=== PATIENT | female | born 1980 | race Caucasian/White ===

== ENCOUNTER 2017-04-15 09:53 | Emergency (ER) | payer BC ==
[~2017-04-15] VITALS: Ht 160 cm; Wt 54.4 kg
[~2017-04-15 09:53] MED LIST: FLC1T; IBP600T1 PO; NITR100C3 PO; ONDAN4ODT PO; PNV1TABL9; PRM25T PO; [UNRECOGNIZED DRUG - OTHER] PO
[2017-04-15] MEDS ORDERED: DICY20TA10 (10:07)
[2017-04-15] MEDS ORDERED: KEPPRA (10:07)
[2017-04-15] MEDS ORDERED: ONDA8TAB12 (10:07)
[2017-04-15] MEDS ORDERED: PROM25TA14 (10:07)
[2017-04-15] MEDS ORDERED: TRAM50TA2 (10:07)
[2017-04-15] MEDS ORDERED: NS IV 1000 ML 1,000 ML IV ONE (10:20)
[2017-04-15] MEDS ORDERED: FAMOTIDINE 20MG/2ML IV (PEPCID) IVP ONE (10:30)
[2017-04-15] MEDS ORDERED: ONDANSETRON 4 MG/2 ML (SDV) Z0FRAN IVP ONE (10:30)
[2017-04-15 10:48] LABS: BASOPHILS % (AUTO) 0 % (0-10); EOSINOPHILS % (AUTO) 0 % (0-10); LYMPHOCYTES % (AUTO) 18 % (12-44); MEAN CORPUSCULAR HEMOGLOBIN 25 PG (25-34); MEAN CORPUSCULAR HGB CONC 31 G/DL (32-36); MEAN CORPUSCULAR VOLUME 78 FL (80-99); MEAN PLATELET VOLUME 10.3 FL (7.4-10.4); MONOCYTES # (AUTO) 0.3 X 10^3 (0.0-1.0); MONOCYTES % (AUTO) 6 % (0-12); NEUTROPHILS # (AUTO) 4.4 X 10^3 (1.8-7.8); NEUTROPHILS % (AUTO) 77 % (42-75); PLATELET COUNT 336 10^3/uL (130-400); RED BLOOD COUNT 4.26 10^6/uL (4.35-5.85); RED CELL DISTRIBUTION WIDTH 17.9 % (10.0-14.5); WHITE BLOOD COUNT 5.7 10^3/uL (4.3-11.0)
[2017-04-15 11:08] LABS: ALANINE AMINOTRANSFERASE 21 U/L (0-55); ANION GAP 7 MMOL/L (5-14); ASPARTATE AMINO TRANSFERASE 18 U/L (5-34); BILIRUBIN,TOTAL 0.4 MG/DL (0.1-1.0); BLOOD UREA NITROGEN 12 MG/DL (7-18); BUN/CREATININE RATIO 17 (0-20); CALCIUM 8.8 MG/DL (8.5-10.1); CARBON DIOXIDE 25 MMOL/L (21-32); CHLORIDE 108 MMOL/L (98-107); GFR ESTIMATED > 60; GLUCOSE 100 MG/DL (70-105); LIPASE 27 U/L (8-78); POTASSIUM 3.3 MMOL/L (3.6-5.0); SODIUM 140 MMOL/L (135-145); TOTAL PROTEIN 6.3 GM/DL (6.4-8.2)
[2017-04-15] MEDS ORDERED: PROMETHAZINE INJ 25 MG/ML (PHENERGAN) AMP IVP ONE (11:45)
[2017-04-15 12:56] LABS: BILIRUBIN,URINE NEGATIVE (NEGATIVE); KETONES,URINE NEGATIVE (NEGATIVE); LEUKOCYTE ESTERASE ,URINE 2+ (NEGATIVE); NITRITE,URINE NEGATIVE (NEGATIVE); PH,URINE 6.5 (5-9); PROTEIN,URINE 2+ (NEGATIVE); UROBILINOGEN,URINE NORMAL (NORMAL)
--- NOTE | 2017-04-15 13:11 | ED Abdominal Pain ---
General Chief Complaint: Abdominal/GI Problems Stated Complaint: VOMITING,NAUSEA Nursing Triage Note: AMB TO ED HAS BEEN SICK SINCE SAT WITH NAUSEA & VOMITING WAS SEEN IN [facility]. ER GIVEN MEDS UNABLE TO KEEP ANYTHING DOWN BODY ACHES. NEG WORK UP ON SAT IN ER IN [facility]. Sepsis Screen: No Definite Risk Source of Information: Patient Exam Limitations: No Limitations History of Present Illness Time Seen By Provider: 10:05 Initial Comments This 36-year-old woman presents to the emergency room with complaints of vomiting and diarrhea since Friday (about 5 days). She reports a prior fever up to 102. She was seen for these symptoms already in [place], [place] on the first day of symptoms. She received IV fluids. She reports taking oral Zofran and promethazine but she has trouble keeping the pills down. She reports having a fever as recent as last night up to 100. Last menstrual period was about 10 days ago. Her Zofran was not sublingual. Allergies and Home Medications Allergies Coded Allergies: NKANo Known Allergies (Unverified Allergy, Unknown, 01/16/07) No Known Drug Allergies (Unverified , 02/27/09) Home Medications Dicyclomine HCl 20 Mg Tablet, #20 (Reported) Ibuprofen 600 Mg Tab, 600 MG PO Q6H PRN, (Reported) for mild pain Omeprazole 20 Mg Tablet.dr, 20 MG PO BID, #60 Prescribed by: JESUS CARRENO on 04/15/17 1332 Ondansetron 4 Mg Tab.rapdis, 4 MG SL Q4H, #10 Ref 1 Prescribed by: JESUS CARRENO on 04/15/17 1332 Ondansetron HCl 8 Mg Tablet, #20 (Reported) Promethazine HCl 25 Mg Tablet, #20 (Reported) Tramadol HCl 50 Mg Tablet, #18 (Reported) [Keppra] , (Reported) Review of Systems Constitutional: no symptoms reported EENTM: No Symptoms Reported Respiratory: No Symptoms Reported Cardiovascular: No Symptoms Reported Gastrointestinal: See HPI Genitourinary: No Symptoms Reported Musculoskeletal: no symptoms reported Skin: no symptoms reported Psychiatric/Neurological: No Symptoms Reported Endocrine: No Symptoms Reported Hematologic/Lymphatic: No Symptoms Reported Past Svwtfkw-Zhtqgm-Ezgcti Hx Patient Social History Alcohol Use: Denies Use Recreational Drug Use: No Smoking Status: Current Everyday Smoker Recent Foreign Travel: No Contact w/Someone Who Travel: No Recent Infectious Disease Expo: No Recent Hopitalizations: Yes (1996- OVARIAN CYST REMOVED FROM RT OVARY, 2004- C- SECTION) Immunizations Up To Date Tetanus Booster (TDap): Unknown Surgeries HX Surgeries: Yes Surgeries: Bladder Surgery, Section Respiratory Hx Respiratory Disorders: No Cardiovascular Hx Cardiac Disorders: Yes (mitrial valve prolapse) Neurological Hx Neurological Disorders: Yes Neurological Disorders: Seizure Disorder Reproductive System : No Hx Reproductive Disorders: Yes Female Reproductive Disorders: Ovarian Cyst Genitourinary Hx Genitourinary Disorders: No Gastrointestinal Hx Gastrointestinal Disorders: No Musculoskeletal Hx Musculoskeletal Disorders: No Endocrine Hx Endocrine Disorders: Yes (hypoglycemia) HEENT HX ENT Disorders: No Cancer Hx Cancer: No Psychosocial Hx Psychiatric Problems: Yes Behavioral Health Disorders: Depression Integumentary HX Skin/Integumentary Disorder: No Blood Transfusions Hx Blood Disorders: No Adverse Reaction to a Blood Tr: No Family Medical History Significant Family History: No Pertinent Family Hx Physical Exam Vital Signs VS - Last 72 Hours, by Label 04/15/17 04/15/17 09:58 13:41 Temp 98.2 Pulse 70 68 Resp 18 18 B/P (MAP) 131/91 Pulse Ox 100 O2 Delivery Room Air Capillary Refill : Less Than 3 Seconds General Appearance: WD/WN, no apparent distress HEENT: PERRL/EOMI, normal ENT inspection, pharynx normal Neck: normal inspection Respiratory: lungs clear, normal breath sounds, no respiratory distress, no accessory muscle use Cardiovascular: regular rate, rhythm, no edema, no murmur Gastrointestinal: normal bowel sounds, soft, tenderness (mild in the epigastrium) Extremities: normal inspection, no pedal edema 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, no motor/sensory deficits, alert, normal mood/affect, oriented x 3 Skin: normal color, warm/dry Progress/Results/Core Measures Results/Orders Lab Results Laboratory Tests Test 04/15/17 10:41 04/15/17 12:47 Range/Units White Blood Count 5.7 4.3-11.0 10^3/uL Red Blood Count 4.26 L 4.35-5.85 10^6/uL Hemoglobin 10.5 L 11.5-16.0 G/DL Hematocrit 33 L 35-52 % Mean Corpuscular Volume 78 L 80-99 FL Mean Corpuscular Hemoglobin 25 25-34 PG Mean Corpuscular Hemoglobin Concent 31 L 32-36 G/DL Red Cell Distribution Width 17.9 H 10.0-14.5 % Platelet Count 336 130-400 10^3/uL Mean Platelet Volume 10.3 7.4-10.4 FL Neutrophils (%) (Auto) 77 H 42-75 % Lymphocytes (%) (Auto) 18 12-44 % Monocytes (%) (Auto) 6 0-12 % Eosinophils (%) (Auto) 0 0-10 % Basophils (%) (Auto) 0 0-10 % Neutrophils # (Auto) 4.4 1.8-7.8 X 10^3 Lymphocytes # (Auto) 1.0 1.0-4.0 X 10^3 Monocytes # (Auto) 0.3 0.0-1.0 X 10^3 Eosinophils # (Auto) 0.0 0.0-0.3 10^3/uL Basophils # (Auto) 0.0 0.0-0.1 10^3/uL Sodium Level 140 135-145 MMOL/L Potassium Level 3.3 L 3.6-5.0 MMOL/L Chloride Level 108 H 98-107 MMOL/L Carbon Dioxide Level 25 21-32 MMOL/L Anion Gap 7 5-14 MMOL/L Blood Urea Nitrogen 12 7-18 MG/DL Creatinine 0.70 0.60-1.30 MG/DL Estimat Glomerular Filtration Rate > 60 BUN/Creatinine Ratio 17 0-20 Glucose Level 100 70-105 MG/DL Calcium Level 8.8 8.5-10.1 MG/DL Magnesium Level 2.0 1.8-2.4 MG/DL Total Bilirubin 0.4 0.1-1.0 MG/DL Aspartate Amino Transf (AST/SGOT) 18 5-34 U/L Alanine Aminotransferase (ALT/SGPT) 21 0-55 U/L Alkaline Phosphatase 53 40-136 U/L Total Protein 6.3 L 6.4-8.2 GM/DL Albumin 4.0 3.2-4.5 GM/DL Lipase 27 8-78 U/L Serum Test, Qualitative NEGATIVE NEGATIVE Helicobacter pylori IgG Antibody 0.18 0.00-0.79 U/mL Urine Color YELLOW Urine Clarity SLIGHTLY CLOUDY Urine pH 6.5 5-9 Urine Specific [place] 1.015 L 1.016-1.022 Urine Protein 2+ H NEGATIVE Urine Glucose (UA) NEGATIVE NEGATIVE Urine Ketones NEGATIVE NEGATIVE Urine Nitrite NEGATIVE NEGATIVE Urine Bilirubin NEGATIVE NEGATIVE Urine Urobilinogen NORMAL NORMAL MG/DL Urine Leukocyte Esterase 2+ H NEGATIVE Urine RBC (Auto) 5+ H NEGATIVE Urine RBC 0-2 /HPF Urine WBC 2-5 /HPF Urine Squamous Epithelial Cells >50 H /HPF Urine Crystals NONE /LPF Urine Bacteria MODERATE H /HPF Urine Casts NONE /LPF Urine Mucus NEGATIVE /LPF Urine Culture Indicated NO My Orders Orders - JESUS BARRERA MD Ua Culture If Indicated (04/15/17 10:11) Cbc With Automated Diff (04/15/17 10:20) Comprehensive Metabolic Panel (04/15/17 10:20) Lipase (04/15/17 10:20) Magnesium (04/15/17 10:20) Saline Lock/Iv-Start (04/15/17 10:20) Ns Iv 1000 Ml (Sodium Chloride 0.9%) (04/15/17 10:20) Famotidine Injection (Pepcid Injection) (04/15/17 10:30) Ondansetron Injection (Zofran Injectio (04/15/17 10:30) Hcg,Qualitative Serum (04/15/17 11:11) Promethazine Injection (Phenergan Injec (04/15/17 11:45) Helicobacter Pylori Edilia Igg (04/15/17 13:42) Medications Given in ED Vital Signs/I&O Vital Sign - Last 12Hours 04/15/17 04/15/17 09:58 13:41 Temp 98.2 Pulse 70 68 Resp 18 18 B/P (MAP) 131/91 Pulse Ox 100 O2 Delivery Room Air Blood Pressure Mean: 104 Progress Note : Progress Note Patient received a liter of normal saline and Zofran by IV route. She had some refractory nausea and promethazine was added. Pepcid was also ordered. Although patient was concerned about her hydration status, vital signs and labs did not suggest dehydration or hypovolemia. An H. pylori study was ordered because patient reports having some prior similar issues. Departure Impression Impression: Primary Impression: Nausea vomiting and diarrhea Additional Impression: Epigastric pain Disposition: 01 HOME, SELF-CARE Condition: Improved Departure-Patient Inst. Decision time for Depature: 13:08 Referrals: ANDRE JOHNSON DO (PCP) Primary Care Physician TOÑO RICO MD (Family) Primary Care Physician Patient Instructions: Acute Abdomen (Belly Pain), Adult (DC), Gastritis (DC) Add. Discharge Instructions: Drink plenty of clear liquids. Start taking an antacid medication such as omeprazole 20 mg twice daily. Follow-up with your primary care provider as soon as possible. Call today for an appointment. An H. pylori test was started on your blood work. Results should be back by early next week. Have your primary care provider follow-up on these results. If making dietary changes and treating with antacids do not resolve your symptoms, you may need further evaluation with imaging and/or endoscopy. Please discuss with your primary care provider. Avoid the following: Eating large meals, eating close to bedtime, caffeine, carbonation, chocolate, citrus fruits and juices, mints, alcohol, tobacco, NSAID medications such as ibuprofen or naproxen, fatty or greasy foods, spicy foods, or anything else you know irritates your stomach. You are being prescribed sublingual Zofran (ondansetron) that you may dissolve beneath your tongue. You may then add your promethazine (Phenergan) as previously prescribed. Return to the emergency room if symptoms worsen. All discharge instructions reviewed with patient and/or family. Voiced understanding. Scripts Ondansetron (Zofran Odt) 4 Mg Tab.rapdis 4 MG SL Q4H, #10 TAB 1 Refill Prov: JESUS BARRERA MD 04/15/17 Omeprazole (Omeprazole) 20 Mg Tablet. 20 MG PO BID, #60 TAB Prov: JESUS BARRERA MD 04/15/17 JESUS BARRERA MD Apr 15, 2017 13:11
[2017-04-15 13:25] LABS: SQUAMOUS EPITHELIAL CELL,UR >50 /HPF
[2017-04-15] MEDS ORDERED: OMEP20TA7 PO (13:32)
[2017-04-15] MEDS ORDERED: ONDA4TAB8 SL (13:32)
[2017-04-15 13:41] VITALS: BP 128/88
[2017-04-18 07:46] LABS: H PYLOR IGG INT Negative (Negative)
== END 2017-04-15 13:42 | disposition home or self-care (01) ==
LOC: EDUNIT# 09:53 → ER 09:55
DX: R11.2 Nausea with vomiting, unspecified (principal); R19.7 Diarrhea, unspecified; R10.13 Epigastric pain; F17.210 Nicotine dependence, cigarettes, uncomplicated; Z32.02 Encounter for pregnancy test, result negative
CPT/HCPCS: 36415; 80053; 81000; 83690; 83735; 84703; 85025; 86677